=== PATIENT | female | born 1960 | race Caucasian/White ===

== ENCOUNTER 2020-05-30 17:10 | Inpatient (IN) ==
[2020-05-30] MEDS ORDERED: MORPHINE 4 MG/1 ML VIAL IV ONE (17:43)
[2020-05-30] MEDS ORDERED: SODIUM CHLORIDE 0.9% 1,000 ML IV STA (17:43)
[2020-05-30 18:18] LABS: Basophils % 0.2 % (0.0-0.8); Eosinophils % 0.1 % (0.00-10.9); Hematocrit 32.3 VOL% (35.7-47.0); Hemoglobin 10.6 GM/DL (12.0-16.0); Immature Granulocytes % 1.7 %; Immature Granulocytes Absolute 0.18 #; Lymphocytes # 2.1 10*3/uL (1.4-4.0); Lymphocytes % 20.3 % (21.3-54.2); Mean Corpuscular HGB Conc 32.8 GM/DL (32-36); Mean Platelet Volume 11.3 FL (9.6-12.0); Monocytes % 12.2 % (1.7-12.7); NRBC # 0.02 10*3/uL; Neutrophils % 65.5 % (38.7-73.9); Platelet Count 154 T/CUMM (130-400); Red Cell Distribution Width 21.2 % (9.3-17.3); White Blood Count 10.3 T/CUMM (4-12)
[2020-05-30 18:39] LABS: Bilirubin,Total 4.2 MG/DL (0.2-1.0); Calcium 8.1 MG/DL (8.5-10.1); Osmolality,Calculated 279.3 MOS/KG (273-304); Total Protein 5.3 G/DL (6.4-8.3)
[2020-05-30 18:42] LABS: Apearance,Urine Slightly Hazy (Clear); Blood, Urine Small mg/dL (Negative); Glucose,Urine (UA) Negative (Negative); Ketones,Urine 5 mg/dL (Negative); Mucus,Urine Many /LPF (Occasional); Nitrite,Urine Negative (Negative); Protein,Urine 100 MG/DL; RBC,Urine 17 /HPF (0-4); Squamous Epithelial Cell,Urine Occasional /HPF (0-10); Urine Color Amber (Yellow); Urine Specific Gravity 1.045 (1.001-1.035); WBC,Urine 111 /HPF (0-6)
[2020-05-30 18:44] LABS: Bilirubin,Urine Moderate mg/dL (Negative)
[2020-05-30] MEDS ORDERED: LEVOFLOXACIN INJ 750 MG in PREMIX 1 EACH IV STA (20:31)
[2020-05-30] MEDS ORDERED: GLUCAGON 1 MG VIAL IM PRN (20:58)
[2020-05-30] MEDS ORDERED: DEXTROSE 50% 25 GM/50 ML VIAL IV PRN (20:58)
[2020-05-30] MEDS ORDERED: LOPERAMIDE 2 MG CAPSULE PO PRN (21:50)
[2020-05-30] MEDS: POTASSIUM CHLORIDE 10 MEQ TABLET PO SCH (22:30)
[2020-05-30] MEDS: ENOXAPARIN 40 MG/0.4 ML SYRINGE SUBCUT SCH (22:30)
[2020-05-30] MEDS: MORPHINE 4 MG/1 ML VIAL IV PRN (22:32)
[2020-05-30] MEDS: SODIUM CHLORIDE 0.9% 1,000 ML IV SCH (23:45)
[2020-05-31] MEDS: oxyCODONE/ACETAMINOPHEN 5-325 MG TABLET PO PRN ×4 (03:47→23:42)
[2020-05-31] MEDS: ONDANSETRON 4 MG/2 ML VIAL IV PRN ×2 (03:47→13:08)
[2020-05-31 06:38] LABS: Basophils % 0.4 % (0.0-0.8); Eosinophils # 0.1 10*3/uL (0.0-0.87); Eosinophils % 0.7 % (0.00-10.9); Hematocrit 27.1 VOL% (35.7-47.0); Hemoglobin 8.5 GM/DL (12.0-16.0); Immature Granulocytes Absolute 0.15 #; Lymphocytes # 2.1 10*3/uL (1.4-4.0); Lymphocytes % 27.6 % (21.3-54.2); Mean Corpuscular HGB Conc 31.4 GM/DL (32-36); Mean Corpuscular Volume 98.5 FL (87-102); Mean Platelet Volume 11.6 FL (9.6-12.0); Monocytes % 13.3 % (1.7-12.7); Platelet Count 111 T/CUMM (130-400); Red Blood Count 2.75 MC/CUMM (3.8-5.5); Red Cell Distribution Width 21.3 % (9.3-17.3); White Blood Count 7.7 T/CUMM (4-12)
[2020-05-31] MEDS: SODIUM CHLORIDE 0.9% 1,000 ML IV SCH ×2 (07:07→07:47)
[2020-05-31 07:11] LABS: Albumin 1.1 G/DL (3.4-5.0); Bilirubin,Total 2.7 MG/DL (0.2-1.0); Osmolality,Calculated 285.6 MOS/KG (273-304); Total Protein 3.3 G/DL (6.4-8.3)
[2020-05-31 07:14] LABS: Calcium 5.7 MG/DL (8.5-10.1)
[2020-05-31 07:15] LABS: Eosinophils 1 % (0-10); Hypochromasia 1+; Lymphocytes 20 % (20-55); Platelet Estimate Decreased; Segmented Neutrophils 69 % (50-85); Total Cells Counted 100
[2020-05-31] MEDS ORDERED: CALCIUM GLUCONATE 1,000 MG in SODIUM CHLORIDE 0.9% 100 ML IV ONE ×2 (07:43→10:00)
[2020-05-31] MEDS ORDERED: POTASSIUM CHLORIDE 20 MEQ TABLET PO SCH (08:00)
[2020-05-31] MEDS ORDERED: cefTRIAXone 2,000 MG in SYRINGE 1 EACH IV SCH (08:00)
[2020-05-31] MEDS: PANTOPRAZOLE 40 MG TABLET PO SCH (08:56)
[2020-05-31] MEDS: POTASSIUM CHLORIDE 10 MEQ TABLET PO SCH (08:56)
[2020-05-31] MEDS: DULoxetine 30 MG CAPSULE PO SCH (08:57)
[2020-05-31] MEDS ORDERED: MAGNESIUM SULF RIDER 4 GM in PREMIX 1 EACH IV PRN (09:21)
[2020-05-31] MEDS ORDERED: MAGNESIUM SULF RIDER 2 GM in PREMIX 1 EACH IV PRN (09:21)
[2020-05-31 09:49] LABS: Ferritin 818.8 ng/ml (8-252)
[2020-05-31] MEDS: POTASSIUM CHLORIDE INJ 40 MEQ in SODIUM CHLORIDE 0.45% 1,000 ML IV SCH ×3 (10:01→21:59)
[2020-05-31] MEDS: ALPRAZolam 0.5 MG TABLET PO SCH ×2 (10:01→20:03)
[2020-05-31 10:25] LABS: Folate 10.8 NG/ML (5.4-24.0); Vitamin B12 > 2000 PG/ML (211-911)
[2020-05-31] MEDS: MORPHINE 4 MG/1 ML VIAL IV PRN ×2 (13:49→19:57)
[2020-05-31] MEDS: CEFEPIME 1,000 MG in SODIUM CHLORIDE 0.9% 100 ML IV SCH ×2 (16:06→22:00)
[2020-05-31] MEDS: ENOXAPARIN 40 MG/0.4 ML SYRINGE SUBCUT SCH (20:04)
[2020-05-31] MEDS: POTASSIUM CHLORIDE 20 MEQ TABLET PO SCH (20:04)
[2020-05-31] MEDS: traZODone 50 MG TABLET PO SCH (20:04)
[2020-06-01] MEDS: POTASSIUM CHLORIDE INJ 40 MEQ in SODIUM CHLORIDE 0.45% 1,000 ML IV SCH ×3 (01:31→15:57)
[2020-06-01] MEDS: MORPHINE 4 MG/1 ML VIAL IV PRN ×3 (01:53→20:46)
[2020-06-01] MEDS: CEFEPIME 1,000 MG in SODIUM CHLORIDE 0.9% 100 ML IV SCH ×4 (03:18→21:00)
[2020-06-01] MEDS: oxyCODONE/ACETAMINOPHEN 5-325 MG TABLET PO PRN ×2 (04:56→15:57)
[2020-06-01 06:10] LABS: Albumin 1.5 G/DL (3.4-5.0); Bilirubin,Total 3.5 MG/DL (0.2-1.0); Calcium 7.7 MG/DL (8.5-10.1); Osmolality,Calculated 274.4 MOS/KG (273-304); Total Protein 4.4 G/DL (6.4-8.3)
[2020-06-01] MEDS: PANTOPRAZOLE 40 MG TABLET PO SCH (11:08)
[2020-06-01] MEDS: DULoxetine 30 MG CAPSULE PO SCH (11:08)
[2020-06-01] MEDS: ALPRAZolam 0.5 MG TABLET PO SCH ×2 (11:09→21:00)
[2020-06-01] MEDS: POTASSIUM CHLORIDE 20 MEQ TABLET PO SCH ×2 (11:10→20:26)
[2020-06-01] MEDS: traZODone 50 MG TABLET PO SCH (20:26)
[2020-06-01] MEDS: ENOXAPARIN 40 MG/0.4 ML SYRINGE SUBCUT SCH (20:27)
[2020-06-02] MEDS: POTASSIUM CHLORIDE INJ 40 MEQ in SODIUM CHLORIDE 0.45% 1,000 ML IV SCH ×2 (00:07→08:31)
[2020-06-02] MEDS: CEFEPIME 1,000 MG in SODIUM CHLORIDE 0.9% 100 ML IV SCH ×4 (03:30→21:40)
[2020-06-02] MEDS: PANTOPRAZOLE 40 MG TABLET PO SCH (08:29)
[2020-06-02] MEDS: POTASSIUM CHLORIDE 20 MEQ TABLET PO SCH ×2 (08:29→20:24)
[2020-06-02] MEDS: DULoxetine 30 MG CAPSULE PO SCH (08:29)
[2020-06-02] MEDS: ALPRAZolam 0.5 MG TABLET PO SCH (08:29)
[2020-06-02] MEDS: ONDANSETRON 4 MG/2 ML VIAL IV PRN ×3 (08:35→17:26)
[2020-06-02] MEDS: oxyCODONE/ACETAMINOPHEN 5-325 MG TABLET PO PRN ×3 (08:35→17:26)
[2020-06-02 13:44] LABS: Basophils # 0.1 10*3/uL (0.0-0.2); Basophils % 0.7 % (0.0-0.8); Eosinophils % 0.2 % (0.00-10.9); Hematocrit 32.8 VOL% (35.7-47.0); Hemoglobin 10.8 GM/DL (12.0-16.0); Immature Granulocytes % 2.5 %; Immature Granulocytes Absolute 0.25 #; Lymphocytes # 2.3 10*3/uL (1.4-4.0); Lymphocytes % 22.6 % (21.3-54.2); Mean Corpuscular HGB Conc 32.9 GM/DL (32-36); Mean Corpuscular Volume 96.5 FL (87-102); Mean Platelet Volume 10.7 FL (9.6-12.0); Monocytes % 8.5 % (1.7-12.7); NRBC # 0.02 10*3/uL; Neutrophils % 65.5 % (38.7-73.9); Platelet Count 128 T/CUMM (130-400); Red Cell Distribution Width 20.5 % (9.3-17.3)
[2020-06-02] MEDS ORDERED: PROMETHAZINE INJ 12.5 MG in SODIUM CHLORIDE 0.9% 50 ML IV PRN (13:56)
[2020-06-02 14:08] LABS: Polychromasia 1+
[2020-06-02 14:09] LABS: Platelet Estimate Adequate
[2020-06-02 14:10] LABS: Albumin 1.8 G/DL (3.4-5.0); Bilirubin,Total 4.4 MG/DL (0.2-1.0); Calcium 8.2 MG/DL (8.5-10.1); Osmolality,Calculated 259.5 MOS/KG (273-304); Total Protein 5.6 G/DL (6.4-8.3)
[2020-06-02] MEDS: SODIUM CHLORIDE 0.9% 1,000 ML IV SCH (15:05)
[2020-06-02] MEDS: MORPHINE 4 MG/1 ML VIAL IV PRN ×2 (16:02→20:23)
[2020-06-02] MEDS: ENOXAPARIN 40 MG/0.4 ML SYRINGE SUBCUT SCH (20:24)
[2020-06-02] MEDS: ALPRAZolam 0.25 MG TABLET PO SCH (20:24)
[2020-06-02] MEDS: traZODone 50 MG TABLET PO SCH (20:24)
[2020-06-03] MEDS: CEFEPIME 1,000 MG in SODIUM CHLORIDE 0.9% 100 ML IV SCH ×2 (03:55→13:20)
[2020-06-03] MEDS: SODIUM CHLORIDE 0.9% 1,000 ML IV SCH (05:04)
[2020-06-03] MEDS: MORPHINE 4 MG/1 ML VIAL IV PRN (05:04)
[2020-06-03 06:35] LABS: Osmolality,Calculated 269.7 MOS/KG (273-304)
[2020-06-03 08:13] LABS: Basophils % 0.7 % (0.0-0.8); Eosinophils # 0.1 10*3/uL (0.0-0.87); Eosinophils % 0.8 % (0.00-10.9); Hematocrit 27.8 VOL% (35.7-47.0); Hemoglobin 8.9 GM/DL (12.0-16.0); Immature Granulocytes % 2.7 %; Immature Granulocytes Absolute 0.16 #; Lymphocytes # 1.3 10*3/uL (1.4-4.0); Lymphocytes % 21.3 % (21.3-54.2); Monocytes % 9.5 % (1.7-12.7); Red Blood Count 2.78 MC/CUMM (3.8-5.5); Red Cell Distribution Width 21.1 % (9.3-17.3)
[2020-06-03 08:14] LABS: Platelet Count 97 T/CUMM (130-400)
[2020-06-03 08:31] LABS: Platelet Estimate Decreased
[2020-06-03] MEDS: PANTOPRAZOLE 40 MG TABLET PO SCH (10:31)
[2020-06-03] MEDS: ALPRAZolam 0.25 MG TABLET PO SCH (10:31)
[2020-06-03] MEDS: POTASSIUM CHLORIDE 20 MEQ TABLET PO SCH (10:31)
[2020-06-03] MEDS: DULoxetine 30 MG CAPSULE PO SCH (10:32)
[2020-06-03] MEDS: oxyCODONE/ACETAMINOPHEN 5-325 MG TABLET PO PRN (11:42)
[2020-06-03] MEDS: ONDANSETRON 4 MG/2 ML VIAL IV PRN (11:43)
[2020-06-03 11:49] VITALS: BP 119/78
== END 2020-06-03 13:08 | disposition home or self-care (01) | DRG 690 ==
LOC: N.ED 17:10 → N.EDINP 20:58 → N.4E 05-31 01:42
PROVIDERS: ADMIT Internal Medicine; ATTEND Internal Medicine